=== PATIENT | male | born 1980 | race Caucasian/White ===

== ENCOUNTER 2017-07-13 20:59 | Emergency (ER) | payer OTHER ==
[2017-07-13 21:00] VITALS: BP 139/83; PULSE 84; RESP 16; TEMP 99.1; O2SAT 98
[2017-07-13] MEDS ORDERED: PROZ20CA11 PO (21:10)
[2017-07-13] MEDS ORDERED: FEXO15TA PO (21:10)
[2017-07-13 21:54] VITALS: BP 132/85; PULSE 78; RESP 18; O2SAT 96
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
[2017-07-13 23:00] VITALS: BP 130/82
== END 2017-07-13 23:17 | disposition home or self-care (01) ==
LOC: NEPC 20:59
DX: S09.90XA Unspecified injury of head, initial encounter (principal); V43.52XA Car driver injured in collision with other type car in traffic accident, initial encounter; Y92.488 Other paved roadways as the place of occurrence of the external cause
CPT/HCPCS: 70450; 99284